=== PATIENT | female | born 1970 | race Caucasian/White ===

== ENCOUNTER → 2017-12-29 12:46 | Outpatient (CLI) | payer BC, SELFPAY | PROVIDERS: PCP Family Medicine; Visit Provider Physician Assistant | DX: G47.30 Sleep apnea, unspecified (principal); G47.10 Hypersomnia, unspecified; R06.83 Snoring; E66.9 Obesity, unspecified | CPT/HCPCS: 95806 ==

== ENCOUNTER → 2018-01-21 10:44 | Outpatient (CLI) | payer BC, SELFPAY | PROVIDERS: PCP Family Medicine; Visit Provider Physician Assistant | DX: G47.33 Obstructive sleep apnea (adult) (pediatric) (principal); I49.9 Cardiac arrhythmia, unspecified; Z82.49 Family history of ischemic heart disease and other diseases of the circulatory system | CPT/HCPCS: 93225 ==

== ENCOUNTER → 2018-01-26 10:47 | Outpatient (CLI) | payer BC, SELFPAY ==
--- NOTE | 2018-01-26 10:52 | CA_ITS ---
PROCEDURE: 2-D M-mode and color Doppler study INDICATIONS FOR THE TEST: Chest pain COPD Heart Murmur Tobacco Smoking Palpitations Fatigue Syncope Edema Hypertension Diabetes Mellitus Rheumatic Fever SOB PETERS ObesityXHyperlipidemia Family History HD Additional History ARRHYTHMIA PATIENT INFORMATION HEIGHT: 67 WEIGHT:232 GENDER: Female B/P:131/63 2-D/M-MODE INTERPRETATION: 2-D MEASUREMENTS OBSERVED VALUES IN CMS Right Ventricular Dimension (RVDd) 3.3 Interventricular Septum (Thickness)(IVsd) 1.0 Left Ventricular Internal Dimensions(LVIDd) 5.2 Left Ventricular Posterior Wall (Thickness)(LVPWd) .8 Aortic Root 3.7 Aortic Cusp Separation 2.2 Left Atrial Dimensions (LAD) 3.2 2D 1. Left atrium is mildly enlarged, left ventricle is normal size, visually estimated ejection fraction of 55% with no regional wall motion abnormality. 2. The right atrium and right ventricle normal contractility. 3. The aortic valve is minimally thickened and fibrosed. 4. The mitral and tricuspid valvular grossly normal. 5. The pulmonic valve is poorly visualized. 6. No significant Pericardial effusion noted. DOPPLER INTERROGATION: Doppler interrogation of the aortic, mitral and tricuspid valvular presence of mild mitral and tricuspid regurgitation, tricuspid regurgitation jet velocity is inadequate for calculation of the right ventricular systolic pressure, grade 1 diastolic dysfunction seen with tissue Doppler evidence of raised left atrial pressure. CONCLUSION: 1. Mildly enlarged left atrium, normal left ventricular size, visually estimated ejection fraction of 55% with no regional wall motion abnormality, grade 1 diastolic dysfunction seen with tissue Doppler evidence of raised left atrial pressure. 2. Mildly enlarged with normal contractility. 3. Mild mitral and tricuspid regurgitation 4.. Pericardial effusion noted.
== END ==
PROVIDERS: PCP Family Medicine; Visit Provider Internal Medicine
DX: I49.9 Cardiac arrhythmia, unspecified (principal); G47.33 Obstructive sleep apnea (adult) (pediatric); Z82.49 Family history of ischemic heart disease and other diseases of the circulatory system
CPT/HCPCS: 93306

== ENCOUNTER → 2018-10-22 12:45 | Outpatient (CLI) | payer BC, SELFPAY ==
--- NOTE | 2018-10-22 13:19 | US_ITS ---
US transvaginal HISTORY: Heavy irregular cycles ITS.REASON: ORDERING PHYSICIAN: KRISTINE Goodwin PATIENT AGE: 48 years Comparison: None FINDINGS: There are multiple nabothian cysts measuring up to 12 mm. The uterus is enlarged at 12 x 6 x 7.5 cm the endometrium is thickened at 13 mm. There is a 3.6 x 2 cm area of heterogeneous echogenicity along the posterior aspect of the body of the uterus consistent with fibroid. The left ovary is 5 x 3.4 cm and contains a 3.4 x 2.7 cm cyst with a septation The right ovary is 3.7 x 2.2 cm. No cul-de-sac fluid evident IMPRESSION: 1. Thickened endometrium at 13 mm 2. Enlarged uterus with 3.6 cm uterine fibroid and multiple nabothian cysts. 3. 3.4 cm left ovarian cyst
== END ==
PROVIDERS: PCP Family Medicine; Visit Provider Physician Assistant
DX: N92.0 Excessive and frequent menstruation with regular cycle (principal)
CPT/HCPCS: 76830

== ENCOUNTER 2019-12-06 19:51 | Emergency (ER) | payer BC, SELFPAY ==
[2019-12-06 20:01] VITALS: BP 153/69; PULSE 113; RESP 18; TEMP 36.7; O2SAT 96; BMI 36.0
--- NOTE | 2019-12-06 20:12 | HMH.EDUTC ---
[facility] [place] Impression: Viral syndrome Sinusitis Qualifiers: Sinusitis location: unspecified location Chronicity: acute Recurrence: non-recurrent Qualified Code(s): J01.90 - Acute sinusitis, unspecified Disposition: Home, Self-Care Condition on Discharge: Good Instructions: Sinusitis, DI for Sinusitis, DI for Viral Syndrome, Preventing the Spread of Coronavirus Discharge Instructions Additional Instructions: Drink plenty of fluids. Take tylenol or ibuprofen for pain or fever. Take the medications as directed. Follow up with your regular doctor. GO TO THE ER FOR ANY WORSENING SYMPTOMS FOLLOW THE DIRECTIONS ON THE COVID-19 HAND OUT THAT WE GAVE YOU REGARDING SELF-ISOLATION UNTIL YOU KNOW YOUR COVID-19 RESULTS Prescriptions: Albuterol Sulfate [Albuterol Sulfate Hfa] 2 puffs IH Q6HP PRN 30 Days #1 hfa.aer.ad PRN Reason: Shortness Of Breath Transmission Status: Received by [facility] # Ondansetron [Zofran 4mg ODT] 4 mg PO Q8HP PRN #10 tab.rapdis PRN Reason: Nausea Transmission Status: Received by [facility] # Azithromycin [Z-Markus 250mg Tab*] 250 mg PO UD DOSE PK #6 tab Transmission Status: Received by [facility] # Referrals: Hermes Arvizu MD [Primary Care Provider] - Forms: Work/School Release Time of Disposition: 20:20 Medical Decision Making - Medical Records Medical records reviewed: No: I reviewed the patient's medical records. - Dave Inquiry Pt receiving controlled substance: No Vital Signs: 12/06/19 20:01 Temperature 98.0 F Temperature Source Oral Pulse Rate [Radial] 113 H Respiratory Rate 18 Blood Pressure [Right Arm] 153/69 H Blood Pressure Mean [Right Arm] 97 Blood Pressure Source [Right Arm] Automatic Cuff Blood Pressure Position [Right Arm] Sitting 02 Sat by Pulse Oximetry 96 Oxygen Delivery Method Room Air Orders (Tests/Meds): ORDERS Category Date Time Status Covid-19 Nasal PCR Sendout [place] Stat [facility] 12/06/19 20:18 [place] [facility] [place] - General Stated complaint: Cough,MACDONALD,Dizzy,chills,wants COVID Test Time Seen by Provider: 09/21/20 20:12 Mode of Arrival: Ambulatory Source of Information: Patient Limitations: No Limitations Description of Symptoms (Recalled from Triage Doc. by RN): feels, weak and tired, wants covid test. HEENT Symptoms (Recalled from RN notes): Yes Resp Symptoms (Recalled from RN notes): No Skin Symptoms (Recalled from RN notes): No MS Symptoms (Recalled from RN notes): Yes Functional Status (Recalled from RN notes): wnl - History of Present Illness Provider Complaint: She c/o body aches, mild chest tightness with deep breathing, chilling and feeling generally ill. Her symptoms started yesterday, but they have increased in severity thru out today. 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 - Related Data Home Medications Medication Instructions Recorded Confirmed citalopram 20 mg tablet 10 mg PO DAILY tab 01/21/18 05/11/18 celecoxib 200 mg capsule 200 mg PO DAILY 30 Days #30 cap 03/06/18 05/11/18 ferrous gluconate 324 mg (38 mg 324 mg PO DAILY 30 Days #30 tab 03/06/18 05/11/18 iron) tablet Previous Rx's Medication Instructions Recorded Albuterol Sulfate [Albuterol 2 puffs IH Q6HP PRN 30 Days #1 12/06/19 Sulfate Hfa] hfa.aer.ad Azithromycin [Z-Markus 250mg Tab*] 250 mg PO UD DOSE PK #6 tab 12/06/19 Ondansetron [Zofran 4mg ODT] 4 mg PO Q8HP PRN #10 tab.rapdis 12/06/19 Allergies Allergy/AdvReac Type Severity Reaction Status Date / Time No Known Allergies Allergy Verified 05/11/18 08:54 - Worker's Comp Is this a Worker's Comp case?: No [facility] History - Hepatitis A Screen Drug use history?: No High risk sexual behaviors?: No History of sexually transmitted infection?: No Currently employed?: No Childcare worker?: No Do you have indoor plumbing?: Yes Do you
[2019-12-06 20:26] VITALS: BP 153/69; PULSE 113; RESP 18; TEMP 36.7; O2SAT 96
[2019-12-08 16:09] LABS: Covid-19 Nasal PCR Sendout Lex Not Detected
== END 2019-12-06 20:26 | disposition home or self-care (01) ==
PROVIDERS: Emergency Provider Nurse Practitioner Family; PCP Family Medicine
DX: B34.9 Viral infection, unspecified (principal); J01.90 Acute sinusitis, unspecified; Z20.828 Contact with and (suspected) exposure to other viral communicable diseases
CPT/HCPCS: 99201; U0004

== ENCOUNTER 2020-03-07 21:05 | Emergency (ER) | payer BC, SELFPAY ==
[2020-03-07 21:14] VITALS: BP 170/71; PULSE 81; RESP 15; TEMP 36.7; O2SAT 96; BMI 36.0
--- NOTE | 2020-03-07 21:36 | HMH.EDUROGF ---
ED Disposition Clinical Impression: Pelvic pain Disposition: Home, Self-Care Condition on Discharge: Good Instructions: DI for Pelvic Pain Additional Instructions: use meds and se pcp in am Referrals: Hermes Arvizu MD [Primary Care Provider] - - Critical Care Critical Care Time: No Attestation: On 03/07/20, the high probability of a clinically significant, sudden or life threatening deterioration of the following system(s) required my full and direct attention, intervention and personal management. The time I documented below is in addition to time spent performing reported procedures but includes the following listed in this critical care notation. Medical Decision Making - Medical Records Medical records reviewed: Yes: I reviewed the patient's medical records. - Dave Inquiry Pt receiving controlled substance: No Vital Signs: 03/07/20 21:14 03/07/20 22:06 03/07/20 22:36 Temperature 98.0 F Temperature Source Oral Pulse Rate [Right Brachial] 81 91 H 82 Respiratory Rate 15 16 15 Blood Pressure [Right Arm] 170/71 H 129/77 145/75 H Blood Pressure Mean [Right Arm] 104 94 98 Blood Pressure Source [Right Arm] Automatic Cuff Automatic Cuff Automatic Cuff Blood Pressure Position [Right Arm] Sitting Sitting Sitting 02 Sat by Pulse Oximetry 96 96 95 Oxygen Delivery Method Room Air Room Air Room Air - Lab Data Lab results reviewed: Yes: I reviewed the patient's lab results. Lab Results 03/07/20 20:45: Urine Color Yellow, Urine Appearance Clear, Urine pH 6.5, Ur Specific [place] 1.020, Urine Protein Negative, Urine Glucose (UA) Negative, Urine Ketones Negative, Urine Blood 1+, Urine Nitrate Negative, Urine Bilirubin Negative, Urine Urobilinogen 0.2, Ur Leukocyte Esterase Negative, Urine RBC 3-5, Urine WBC Occasional, Ur Squamous Epith Cells 3-5, Urine Bacteria 1+, Urine Mucus 1+ 03/07/20 20:50: WBC 10.2, RBC 4.83, Hgb 14.8, Hct 44.3, MCV 91.6, MCH 30.6, MCHC 33.4, RDW 13.9, Plt Count 354, MPV 8.1, Neut % (Auto) 65.0, Lymph % (Auto) 28.6, [place] % (Auto) 4.4, Eos % (Auto) 1.6, Baso % (Auto) 0.4, Neut # (Auto) 6.7, Lymph # (Auto) 2.9, [place] # (Auto) 0.5, Eos # (Auto) 0.2, Baso # (Auto) 0.1 03/07/20 20:50: Sodium 137, Potassium 4.3, Chloride 103, Carbon Dioxide 26, Anion Gap 12.3, BUN 19 H, Creatinine 0.70, Estimated Creat Clear 158, Estimated GFR 89, Est GFR ( Amer) 107, Glucose 105 H, Calcium 9.5, Total Bilirubin 0.4, AST 53 H, ALT 68, Alkaline Phosphatase 54, C-Reactive Protein 5.5 H, Total Protein 7.8, Albumin 4.4, Globulin 3.4 H, Albumin/Globulin Ratio 1.3, Amylase 64 03/07/20 20:50: ESR 16 03/07/20 20:50: Lipase 141 Result diagrams: 03/07/20 20:50 03/07/20 20:50 Orders (Tests/Meds): ED MEDICATIONS Discontinued Medications Generic Name Dose Route Start Last Admin Trade Name Freq PRN Reason Stop Dose Admin Acetaminophen/Codeine Phosphate 1 cydney 03/07/20 23:35 Acetaminophen 300mg W/Codeine 30mg Take Home Pack (6) PO 03/07/20 23:36 ONCE ONE Ketorolac Tromethamine 30 mg 03/07/20 22:52 03/07/20 23:05 Ketorolac 30mg/Ml Vial IV 03/07/20 22:53 30 mg ONCE ONE Administration Levofloxacin 500 mg 03/07/20 23:35 Levofloxacin 500mg Tab PO 03/07/20 23:36 ONCE ONE Protocol ORDERS Category Date Time Status CT abdomen pelvis wo con Stat Cat Scan 03/07/20 21:38 Taken C-Reactive Protein Stat Lab 03/07/20 23:35 Ordered Erythrocyte Sedimentation Rate Stat Lab 03/07/20 23:35 Ordered US Pelvic Stat Ultrasound 03/07/20 22:43 Ordered - CT Data CT Scan: Abdomen, Pelvis Time Received: 23:[address] Reviewed: Yes: I have viewed the radiologist's interpretation Preliminary Findings: Normal/NAD - US Data US Images: Pelvis ED US Reviewed: Yes: I discussed the US results w/the radiologist Preliminary Findings: Normal/NAD Medical Decision Narrative: uncertain etiology as u/s and ct - ok - maybe urethritis Female Urogenital HPI - General Chief complai
--- NOTE | 2020-03-07 21:38 | CT_ITS ---
PROCEDURE: CT ABDOMEN PELVIS WO CON CLINICAL INDICATION: pelvic pressure Misplaced IUD COMPARISON: CT ABDPELW/O CT ABD PELVIS W/O CONTRAST from 03/27/2015 US US TRANSVAGINAL from 03/07/2020 TECHNIQUE: Axial images obtained with sagittal and coronal reformats. All CT scans at the facility use one or more dose reduction, viz: automated exposure control, ma/kV adjustment per patient size (including targeted exams where dose is matched to indication, i.e. head), or iterative reconstruction technique. FINDINGS: There is diffuse fatty liver. The spleen, adrenal glands, pancreas, has an unremarkable appearance. There are nonobstructing bilateral punctate renal calculi. There is a small umbilical hernia containing fat. No evidence of appendicitis. There is an IUD in place which appears to be in satisfactory position. The uterus is anteverted and mildly bulky. No pelvic mass or abnormal fluid collection. No acute bony findings. Degenerative disc disease is present at L5-S1 with endplate hypertrophic change and bilateral foraminal narrowing. IMPRESSION: 1. Nonobstructing bilateral renal calculi. 2. IUD in place within satisfactory position within a bulky uterus. Dictated by: aAron Moses MD 03/08/2020 07:13 Aaron Moses MD in OV 03/08/2020 07:13
--- NOTE | 2020-03-07 21:41 | PC.NURSE ---
MD at pt bedside with this nurse for a pelvic exam.
[2020-03-07 22:01] LABS: Microscopic, Urine URINE MICROSCOPIC (MICROSCOPIC)
[2020-03-07 22:05] LABS: Basophils # 0.1 K/mm3 (0-0.2); Basophils % 0.4 % (0.1-2.0); Eosinophils # 0.2 K/mm3 (0.0-0.4); Eosinophils % 1.6 % (0.1-12.0); Hematocrit 44.3 % (37.0-47.0); Hemoglobin 14.8 g/dL (12.2-16.2); Lymphocytes # 2.9 K/mm3 (0.7-4.5); Lymphocytes % 28.6 % (10-50); Mean Corpuscular HGB Conc 33.4 g/dL (31.8-35.4); Mean Corpuscular Hemoglobin 30.6 pg (27.0-31.2); Mean Corpuscular Volume 91.6 fl (81-99); Mean Platelet Volume 8.1 fl (7.4-10.4); Monocytes # 0.5 K/mm3 (0.1-1.0); Monocytes % 4.4 % (1.7-9.3); Neutrophils # 6.7 K/mm3 (1.8-7.8); Platelet Count 354 K/mm3 (142-424); Red Blood Count 4.83 M/mm3 (4.20-5.40); Red Cell Distribution Width 13.9 % (11.5-17.5); White Blood Count 10.2 K/mm3 (4.8-10.8)
[2020-03-07 22:05] LABS: Appearance,Urine CLEAR (Clear); Bilirubin,Urine Negative (Negative); Blood, Urine 1+ (Negative); Color,Urine YELLOW (Yellow); Glucose,Urine (UA) Negative (Negative); Ketones,Urine Negative (Negative); Leukocyte Esterase,Urine Negative (Negative); Nitrate,Urine Negative (Negative); PH,Urine 6.5 (5.0-8.5); Protein,Urine Negative (Negative); Urobilinogen,Urine 0.2 EU/dl (0.2)
[2020-03-07 22:06] VITALS: BP 129/77; PULSE 91; RESP 16; O2SAT 96
[2020-03-07 22:15] LABS: Bacteria,Urine 1+ /lpf; Mucus,Urine 1+ /lpf; WBC,Urine Occasional #/hpf (0-3)
[2020-03-07 22:17] LABS: Chloride 103 mmol/L (98-107); Potassium 4.3 mmoL/L (3.5-5.1); Sodium 137 mmol/L (136-145)
[2020-03-07 22:19] LABS: Amylase 64 U/L (30-110); Blood Urea Nitrogen 19 mg/dl (7-17); Creatinine Clearance Estimated 158 mL/min (50-200); Estimated Glomerular Filt Rate 89 ml/min (>60); GFR (African American) 107 ML/MIN (>60); Lipase 141 U/L (23-300)
[2020-03-07 22:20] LABS: Alanine Aminotransferase 68 U/L (12-78); Albumin Level 4.4 g/dl (3.5-5.0); Albumin/Globulin Ratio 1.3 (1.1-1.8); Alkaline Phosphatase 54 U/L (38-126); Anion Gap 12.3 mEq/L (5-15); Aspartate Amino Transferase 53 U/L (14-36); Bilirubin,Total 0.4 mg/dl (0.2-1.3); Calcium 9.5 mg/dl (8.4-10.2); Carbon Dioxide 26 mmol/L (22.0-30.0); Globulin 3.4 g/dL (1.3-3.2); Glucose 105 mg/dl (74-100); Total Protein,Serum 7.8 g/dl (6.3-8.2)
[2020-03-07 22:26] LABS: C-Reactive Protein 5.5 mg/L (0-4)
[2020-03-07 22:33] LABS: Erythrocyte Sedimentation Rate 16 mm/hr (0-20)
[2020-03-07 22:36] VITALS: BP 145/75; PULSE 82; RESP 15; O2SAT 95
--- NOTE | 2020-03-07 22:43 | US_ITS ---
PROCEDURE: US TRANSVAGINAL CLINICAL INDICATION: pelvic pain Pelvic pain and pressure, heavy periods COMPARISON: US TRANVAG US transvaginal from 10/22/2018 FINDINGS: The uterus is 11 x 5 x 7 cm. Combined endometrial thickness is 8 mm. There are multiple nabothian cyst. A fundal fibroid is present at 2 cm. An additional fibroid noted in the posterior aspect of the body of the uterus 4 x 2 cm. There is an IUD in place. The ovaries are not well demonstrated. No obvious adnexal mass. There bilateral ovarian blood flow noted. No cul-de-sac fluid. IMPRESSION: Bulky uterus with fibroid involvement and IUD in place Dictated by: Aaron Moses MD 03/08/2020 07:16 Aaron Moses MD in OV 03/08/2020 07:16
--- NOTE | 2020-03-07 22:59 | PC.NURSE ---
Pt to ultrasound
--- NOTE | 2020-03-07 23:28 | PC.NURSE ---
pt back from US
--- NOTE | 2020-03-07 23:31 | PC.NURSE ---
2330 pt returned from Radiology
--- NOTE | 2020-03-07 23:32 | PC.NURSE ---
Physician at bedside.
--- NOTE | 2020-03-07 23:32 | PC.NURSE ---
us of vagina is complete. verbal report to dr mckinney from [facility].
[2020-03-07 23:53] VITALS: BP 142/30; PULSE 83; RESP 16; TEMP 36.8; O2SAT 98
[2020-03-07 23:55] LABS: C-Reactive Protein 5.1 mg/L (0-4)
[2020-03-08 00:07] LABS: Erythrocyte Sedimentation Rate 18 mm/hr (0-20)
== END 2020-03-08 00:02 | disposition home or self-care (01) ==
PROVIDERS: Emergency Provider Emergency Medicine; PCP Family Medicine
DX: R10.2 Pelvic and perineal pain (principal)
CPT/HCPCS: 74176; 76830; 80053; 81001; 82150; 83690; 85025; 85651; 86140; 96374; 99283

== ENCOUNTER → 2020-04-08 12:32 | Outpatient (CLI) | payer BC, SELFPAY | PROVIDERS: Visit Provider Family Medicine | DX: N30.00 Acute cystitis without hematuria (principal) | CPT/HCPCS: 87086; 87088; 87186 ==

== ENCOUNTER 2020-12-02 10:39 | Emergency (ER) | payer BC, SELFPAY ==
[2020-12-02 10:51] VITALS: BP 185/96; PULSE 96; RESP 16; TEMP 36.5; O2SAT 96; BMI 36.0
--- NOTE | 2020-12-02 11:28 | HMH.EDUTC ---
[facility] [place]ression: Exposure to COVID-19 virus Disposition: Home, Self-Care Condition on Discharge: Good Instructions: DI for COVID-19 (Suspected or Confirmed ), Preventing the Spread of Coronavirus Discharge Instructions Additional Instructions: Drink plenty of fluids. Take tylenol for pain or fever. Return if you begin to have difficulty breathing. Follow up with your regular doctor. GO TO THE ER FOR ANY WORSENING SYMPTOMS Quarantine until you know the results of your covid-19 test. If it is positive, the health department should call you and give you further instructions about your length of Quarantine and other things. Notify your school or workplace of your results and follow their instructions regarding return to work/school. Referrals: Hermes Arvizu MD [Primary Care Provider] - Time of Disposition: 11:33 Medical Decision Making - Medical Records Medical records reviewed: No: I reviewed the patient's medical records. - Dave Inquiry Pt receiving controlled substance: No Vital Signs: 12/02/20 10:51 12/02/20 11:43 Temperature 97.7 F 97.7 F Temperature Source Tympanic Tympanic Pulse Rate 96 H Pulse Rate [Apical] 96 H Respiratory Rate 16 18 Blood Pressure 185/96 H Blood Pressure [Right Arm] 185/96 H Blood Pressure Mean [Right Arm] 125 Blood Pressure Source Automatic Cuff Blood Pressure Source [Right Arm] Automatic Cuff Blood Pressure Position Sitting Blood Pressure Position [Right Arm] Supine 02 Sat by Pulse Oximetry 96 Oxygen Delivery Method Room Air Room Air [facility] [place] - General Stated complaint: covid test Time Seen by Provider: 12/02/20 11:32 Mode of Arrival: Ambulatory Source of Information: Patient Limitations: No Limitations Description of Symptoms (Recalled from Triage Doc. by RN): covid exposure HEENT Symptoms (Recalled from RN notes): No Resp Symptoms (Recalled from RN notes): No Skin Symptoms (Recalled from RN notes): No MS Symptoms (Recalled from RN notes): No Functional Status (Recalled from RN notes): na - History of Present Illness Provider Complaint: She was exposed to covid at her job around 5 days ago. She denies any symptoms, but she needs a negative test to return to work. - Related Data Home Medications Medication Instructions Recorded Confirmed citalopram 20 mg tablet 10 mg PO DAILY tab 11/07/18 02/25/19 celecoxib 200 mg capsule 200 mg PO DAILY 30 Days #30 cap 03/06/18 05/11/18 ferrous gluconate 324 mg (38 mg 324 mg PO DAILY 30 Days #30 tab 03/06/18 05/11/18 iron) tablet Previous Rx's Medication Instructions Recorded Albuterol Sulfate [Albuterol 2 puffs IH Q6HP PRN 30 Days #1 12/06/19 Sulfate Hfa] hfa.aer.ad Azithromycin [Z-Markus 250mg Tab*] 250 mg PO UD DOSE PK #6 tab 12/06/19 Ondansetron [Zofran 4mg ODT] 4 mg PO Q8HP PRN #10 tab.rapdis 12/06/19 Allergies Allergy/AdvReac Type Severity Reaction Status Date / Time No Known Allergies Allergy Verified 05/11/18 08:54 - Worker's Comp Is this a Worker's Comp case?: No [facility] History - Hepatitis A Screen Drug use history?: No High risk sexual behaviors?: No History of sexually transmitted infection?: No Currently employed?: No Childcare worker?: No Do you have indoor plumbing?: Yes Do you have electricity?: Yes Attestation statement:: This patient has been screened for Hepatitis A risk factors. I have reviewed the patient's past medical history: Yes Other Medical History: Reports: Arthritis Comment: RAMA Other Surgeries: Yes: Other Comment: breast biopsy, spine fusion - Social History Smoking Status: Never smoker Alcohol Intake: never Alcohol Intake Frequency:: holidays/special occasions only Substance Use Type: denies use Occupational Status: employed Housing: house Household Members: spouse Family Hx:: Coronary Artery Disease Comment: Father-CAD, CABG at 70's. Paternal Grandmother-CAD ROS Obtained: Yes All systems reviewed & no
[2020-12-02 11:43] VITALS: BP 185/96; PULSE 96; RESP 18; TEMP 36.5; O2SAT 96
== END 2020-12-02 11:44 | disposition home or self-care (01) ==
PROVIDERS: Emergency Provider Nurse Practitioner Family; PCP Family Medicine
DX: Z20.822 Contact with and (suspected) exposure to COVID-19 (principal)
CPT/HCPCS: 99202; C9803; G0463; U0003; U0005

== ENCOUNTER → 2021-03-28 14:10 | Outpatient (CLI) | payer BC, SELFPAY | PROVIDERS: Visit Provider Nurse Practitioner | DX: Z20.822 Contact with and (suspected) exposure to COVID-19 (principal) | CPT/HCPCS: C9803; U0003; U0005 ==

== ENCOUNTER → 2023-02-18 08:00 | Outpatient (CLI) | payer BC, SELFPAY ==
--- NOTE | 2023-02-18 08:08 | US_ITS ---
FINAL REPORT CLINICAL HISTORY: ELEVATED LFT COMPARISON: None FINDINGS: Sonographic images of the right upper quadrant were obtained. The pancreas is partially obscured.The liver has an unremarkable appearance.The gallbladder appears normal without evidence of gallstones.There is no evidence of biliary ductal dilatation.The common duct measures 2.4 mm. Limited images of the right kidney are unremarkable. IMPRESSION: Unremarkable right upper quadrant ultrasound. Reviewed, Interpreted and Dictated by Kendell Diamond III, MD Transcribed by Yolie Villarreal Authenticated and [facility]
== END ==
LOC: RAD 08:03
PROVIDERS: PCP Family Medicine; Visit Provider Physician Assistant
DX: R79.89 Other specified abnormal findings of blood chemistry (principal); J32.9 Chronic sinusitis, unspecified
CPT/HCPCS: 76705

== ENCOUNTER → 2023-02-27 07:37 | Outpatient (CLI) | payer BC, SELFPAY ==
--- NOTE | 2023-02-27 07:41 | CT_ITS ---
FINAL REPORT CLINICAL HISTORY: CHRONIC CONGESTION OF PARANASEL SINUS COMPARISON: None FINDINGS: The paranasal sinuses are well aerated. The mastoid air cells are well aerated. Ostiomeatal complexes are adequately patent. There is no fracture. There are no air-fluid levels. IMPRESSION: Unremarkable. Reviewed, Interpreted and Dictated by Edmar Knight MD Transcribed by Abbey Maxwell Authenticated and [facility]
== END ==
PROVIDERS: PCP Family Medicine; Visit Provider Physician Assistant
DX: J32.9 Chronic sinusitis, unspecified (principal)
CPT/HCPCS: 70486

== ENCOUNTER 2023-04-14 02:05 | Emergency (ER) | payer BC, SELFPAY ==
[2023-04-14 02:06] VITALS: BP 167/98; PULSE 119; RESP 22; TEMP 37.8; O2SAT 96; BMI 40.7
--- NOTE | 2023-04-14 02:11 | HMH.EDGENADL ---
Discharge Plan Disposition Patient Disposition: Home, Self-Care Prescriptions Prescriptions: New ondansetron HCl 4 mg tablet 4 mg PO Q8H PRN (Reason: nausea and vomiting) 5 Days Qty: 30 0RF No Action citalopram [Celexa] 20 mg tablet 10 mg PO DAILY ferrous gluconate 324 mg (38 mg iron) tablet 324 mg PO DAILY 30 Days Qty: 30 celecoxib 200 mg capsule See Rx Instructions .ROUTE .COMPLEX Qty: 90 3RF Dose Instruction: TAKE 1 CAPSULE BY MOUTH ONCE DAILY Rx Instructions: TAKE 1 CAPSULE BY MOUTH ONCE DAILY azithromycin 250 MG tablet 250 mg PO UD DOSE PK Qty: 6 0RF Rx Instructions: Take two (2) tablets today, then one (1) tablet days #2 thru #5 ondansetron 4 MG tablet,disintegrating 4 mg PO Q8HP PRN (Reason: Nausea) Qty: 10 0RF albuterol sulfate 8.5 GM HFA aerosol inhaler 2 puffs IH Q6HP PRN (Reason: Shortness Of Breath) 30 Days Qty: 1 5RF Referrals Follow up/Referrals: Gordon Yeboah MD [Primary Care Provider] - See instructions Activity Restrictions/Add. Instructions Additional Instructions/Restrictions: Please take Zofran as needed for nausea and vomiting. Please remain hydrated. Please follow-up with your primary care provider. Please return to the emergency department if you develop any new or worsening symptoms or become concerned for your health. Clinical Impressions Clinical Impression: Enteritis, Nausea & vomiting Instructions Patient Instructions: DI for Diarrhea and Traveler's Diarrhea -- Adult, DI for Diarrhea and Traveler's Diarrhea -- Child, DI for Nausea -- Adult, DI for Nausea -- Child Discharge ED Provider: Osman Seth General Adult HPI General Chief complaint: Nausea/Vomiting/Diarrhea Stated complaint: Vomiting Time Seen by Provider: 04/14/23 02:11 History of Present Illness HPI narrative: 52-year-old female with no significant reported past medical history presents with nausea vomiting and malaise. She reports that she felt off yesterday. Today her symptoms have worsened. For the last 4 hours she has been vomiting constantly. She also reports that she has had low back pain for the last day or so. She reports that she has had frequent UTIs in the past, denies any history of kidney stones. She denies significant abdominal pain, just generalized pain with vomiting. Denies any history of abdominal surgery. Denies shortness of breath or chest pain. Related Data Home Medications Medication Instructions Recorded Confirmed citalopram 20 mg tablet (Celexa) 10 mg PO DAILY 01/21/18 05/11/18 ferrous gluconate 324 mg (38 mg 324 mg PO DAILY 30 days #30 tabs 03/06/18 05/11/18 iron) tablet Previous Rx's Medication Instructions Recorded albuterol sulfate 90 mcg/actuation 2 puffs IH Q6HP PRN Shortness Of 12/06/19 aerosol inhaler Breath 30 days ##1 azithromycin 250 mg tablet 250 mg PO UD DOSE PK #6 tabs 12/06/19 ondansetron 4 mg disintegrating 4 mg PO Q8HP PRN Nausea ##10 12/06/19 tablet celecoxib 200 mg capsule See Rx Instructions .Route 08/30/22 .COMPLEX #90 caps ondansetron HCl 4 mg tablet 4 mg PO Q8H PRN nausea and 04/14/23 vomiting 5 days #30 tabs Allergies Allergy/AdvReac Type Severity Reaction Status Date / Time promethazine [From Phenergan] Allergy Unknown Verified 04/14/23 02:17 [facility] Disclaimer: The information contained in this section may have been updated after the patient was seen, as this information can be updated by other users. Social History Smoking Status: Never smoker alcohol intake: never substance use type: denies use current occupational status: employed Travel in the last 8 weeks: None household members: spouse housing: house current occupational exposures/hazards: No caffeine: Yes ROS Obtained: Yes All systems reviewed & no additional complaints except as documented Physical Exam General General appearance: alert Comment: Uncomfortable appearing Head Head exam: atraumatic and normocephalic Eye Eye exam: Present normal appearance, PERRL and EOMI ENT ENT exam: Present normal oropharynx, mucous membranes moist and normal external ear exam Neck Neck exam: Present normal inspection and full ROM Chest Chest inspection: Present normal inspection and symmetric chest wall rise; Absent tenderness Respiratory Respiratory exam: Present normal lung sounds bilaterally; Absent respiratory distress Cardiovascular Cardiovascular exam: Present normal rhythm and tachycardia Abdominal Exam Abdominal exam: Present soft and tenderness (Mild, generalized); Absent distention or guarding Extremities Exam Extremities exam: Present normal inspection; Absent edema or joint swelling Back Exam Back exam: Present normal inspection and tenderness (Bilateral low back) Neurological Exam Neurological exam: Present alert and oriented X3; Absent motor sensory deficit Psychiatric Psychiatric exam: Present normal affect and normal mood Skin Skin exam: Present warm, dry and normal color Lymphatic Lymphatic Findings: no adenopathy Medical Decision Making Medical Records Medical records reviewed: Yes I reviewed the patient's medical records. Dave Inquiry Pt receiving controlled substance: No Dave was queried for this patient: No Vital Signs: 04/14/23 02:06 Temperature 100.0 F H Temperature Source Oral Pulse Rate [Left Radial] 119 H Respiratory Rate 22 Blood Pressure [Right Arm] 167/98 H Blood Pressure Mean [Right Arm] 121 Blood Pressure Source [Right Arm] Automatic Cuff Blood Pressure Position [Right Arm] Sitting 02 Sat by Pulse Oximetry 96 Oxygen Delivery Method Room Air Lab Data Lab results reviewed: Yes I reviewed the patient's lab results. Lab Results 04/14/23 02:25: SARS-CoV-2 (PCR) Not detected, Influenza A Untype (PCR) Not detected, Influenza Type B (PCR) Not detected 04/14/23 02:28: WBC 12.2 H, RBC 4.86, Hgb 15.1, Hct 43.2, MCV 89.0, MCH 31.1, MCHC 35.0, RDW 13.5, Plt Count 217, MPV 8.3, Neut % (Auto) 90.5 H, Lymph % (Auto) 5.4 L, Jefferson % (Auto) 2.6, Eos % (Auto) 1.4, Baso % (Auto) 0.1, Neut # (Auto) 11.0 H, Lymph # (Auto) 0.7, Jefferson # (Auto) 0.3, Eos # (Auto) 0.2, Baso # (Auto) 0.0, Total Counted 100, Neutrophils % (Manual) 96 H, Lymphocytes % (Manual) 4 L, Platelet Estimate Normal, RBC Morphology Normal, Sodium 137, Potassium 4.0, Chloride 103, Carbon Dioxide 24, Anion Gap 14.0, BUN 15, Creatinine 0.70, Estimated Creat Clear 173, Estimated GFR 88, Est GFR ( Amer) 106, Glucose 166 H, Calcium 9.4, Magnesium 1.6, Total Bilirubin 0.7, AST 66 H, ALT 93 H, Alkaline Phosphatase 82, Total Protein 7.8, Albumin 4.3, Globulin 3.5 H, Albumin/Globulin Ratio 1.2, Lipase 95 04/14/23 03:10: Urine Color Yellow, Urine Appearance Clear, Urine pH 6.5, Ur Specific Ackworth 1.020, Urine Protein Trace, Urine Glucose (UA) Negative, Urine Ketones Trace, Urine Blood Negative, Urine Nitrate Negative, Urine Bilirubin Negative, Urine Urobilinogen 0.2, Ur Leukocyte Esterase Negative, Urine RBC Occasional, Urine WBC 5-10, Ur Squamous Epith Cells 20-50, Urine Bacteria 2+ 04/14/23 02:28 04/14/23 02:28 Orders (Tests/Meds): ED MEDICATIONS Discontinued Medications Generic Name Dose Route Start Last Admin Trade Name Freq PRN Reason Stop Dose Admin Lactated Ringer's 1,000 mls @ 999 mls/hr 04/14/23 02:15 04/14/23 02:24 Lactated Ringer's 1000 Ml Bag IV 04/14/23 03:15 999 mls/hr .Q1H1M ALLISON Administration Iopamidol 75 ml 04/14/23 03:09 04/14/23 03:10 Iopamidol-370 (76%);100ml Bottle IV 04/14/23 03:10 75 ml ONCE ONE Administration Ketorolac Tromethamine 30 mg 04/14/23 02:15 04/14/23 02:25 Ketorolac 30mg/Ml Vial IV 04/14/23 02:16 30 mg ONCE ONE Administration Metoclopramide HCl 10 mg 04/14/23 02:16 04/14/23 02:25 Metoclopramide Hcl 10mg/2ml Vial IVP 04/14/23 02:17 10 mg ONCE ONE Administration Ondansetron HCl 4 mg 04/14/23 02:15 04/14/23 02:25 Ondansetron 4mg/2ml Vial IV 04/14/23 02:16 4 mg ONCE ONE Administration Sodium Chloride 10 ml 04/14/23 03:09 04/14/23 03:10 Sodium Chloride 0.9% 10ml Syr (Rad Only) IV 04/14/23 03:10 10 ml ONCE ONE Administration ORDERS Category Date Time Status CT abdomen pelvis w con Stat Cat Scan 04/14/23 02:49 Completed CBC w/Auto Diff [Complete Blood Count Auto Diff] Stat Lab 04/14/23 02:28 Completed CMP [Comprehensive Metabolic Panel] Stat Lab 04/14/23 02:28 Completed Lipase Stat Lab 04/14/23 02:28 Completed Magnesium Stat Lab 04/14/23 02:28 Completed Rapid PCR Covid and Flu A/B Stat Lab 04/14/23 02:25 Completed UA [Urinalysis and Microscopic] Stat Lab 04/14/23 03:10 Completed Urine Culture Stat Micro 04/14/23 03:10 Received Medical Decision Narrative: 52-year-old female without significant past medical history presents with nausea vomiting abdominal pain back pain. History was obtained via conversation with patient. On arrival, patient is temperature 100.0, tachycardic to 120, actively vomiting, uncomfortable appearing, moving all extremities spontaneously. Full physical exam performed and significant for mild generalized abdominal tenderness and low back tenderness Differential includes but is not limited to UTI, pyelonephritis, gastroenteritis, cholecystitis, appendicitis, bowel obstruction, flu. Patient flagged positive for sepsis, but I did not administer a full sepsis bolus as I do not feel this was indicated given hx and exam and vitals. Patient was given 1 L IV fluid bolus, IV Zofran, IV Reglan, p.o. Tylenol for symptomatic management and correction of underlying abnormalities. Workup initiated including CBC CMP lipase UA CT abdomen pelvis with IV contrast. On re-evaluation, patient [remains afebrile, HD stable.] Reports symptomatic improvement, no longer vomiting. Laboratory workup independently interpreted by me and significant for mildly elevated AST and ALT, mild leukocytosis of 12, lipase normal. Urine does not appear consistent with infection.. Imaging independently interpreted by me and significant for fluid-filled loops of small bowel consistent with enteritis, no cholecystitis, pancreatitis, obstruction. See radiology read for full review of final results. Admission for IV fluids was considered, but deemed necessary. Patient is tolerating p.o. and symptomatically improved. Given patient history, exam and workup, patient's presentation most likely represents developing gastroenteritis. These findings were communicated to patient. She was discharged in stable condition with prescription for Zofran. Return precautions given. Procedures Risk/Benefits of Procedure(s) Were Explained: Yes Critical Care Critical Care Time Critical Care Time: No
[2023-04-14] MEDS: LACTATED RINGERS 1000ML 1,000 ML 999 ML IV (02:24)
[2023-04-14] MEDS: ONDANSETRON 4MG/2ML VIAL 4 MG IV (02:25)
[2023-04-14] MEDS: KETOROLAC 30MG/ML VIAL 30 MG IV (02:25)
[2023-04-14] MEDS: METOCLOPRAMIDE HCL 10MG/2ML VIAL 10 MG IVP (02:25)
[2023-04-14 02:26] LABS: Coronavirus 19, PCR Not Detected (NotDetected); Influenza A, PCR Not Detected (NotDetected); Influenza B, PCR Not Detected (NotDetected)
[2023-04-14 02:38] LABS: Basophils % 0.1 % (0.1-2.0); Eosinophils # 0.2 K/mm3 (0.0-0.4); Eosinophils % 1.4 % (0.1-12.0); Hematocrit 43.2 % (37.0-47.0); Hemoglobin 15.1 g/dL (12.2-16.2); Lymphocytes # 0.7 K/mm3 (0.7-4.5); Lymphocytes % 5.4 % (10-50); MANUAL DIFFERENTIAL MANUAL DIFFERENTIAL (MANUAL DIFF); Mean Corpuscular Hemoglobin 31.1 pg (27.0-31.2); Mean Platelet Volume 8.3 fl (7.4-10.4); Monocytes # 0.3 K/mm3 (0.1-1.0); Monocytes % 2.6 % (1.7-9.3); Neutrophils % 90.5 % (37.0-80.0); Platelet Count 217 K/mm3 (142-424); Red Blood Count 4.86 M/mm3 (4.20-5.40); Red Cell Distribution Width 13.5 % (11.5-17.5); White Blood Count 12.2 K/mm3 (4.8-10.8)
[2023-04-14 02:40] LABS: Chloride 103 mmol/L (98-107); Sodium 137 mmol/L (136-145)
[2023-04-14 02:42] LABS: Blood Urea Nitrogen 15 mg/dl (7-17); Creatinine Clearance Estimated 173 mL/min (50-200); Estimated Glomerular Filt Rate 88 ml/min (>60); GFR (African American) 106 ML/MIN (>60)
[2023-04-14 02:43] LABS: Alanine Aminotransferase 93 U/L (12-78); Albumin Level 4.3 g/dl (3.5-5.0); Albumin/Globulin Ratio 1.2 (1.1-1.8); Alkaline Phosphatase 82 U/L (38-126); Aspartate Amino Transferase 66 U/L (14-36); Bilirubin,Total 0.7 mg/dl (0.2-1.3); Calcium 9.4 mg/dl (8.4-10.2); Carbon Dioxide 24 mmol/L (22.0-30.0); Globulin 3.5 g/dL (1.3-3.2); Glucose 166 mg/dl (74-100); Lipase 95 U/L (23-300); Magnesium 1.6 mg/dl (1.6-2.3); Total Protein,Serum 7.8 g/dl (6.3-8.2)
--- NOTE | 2023-04-14 02:49 | CT_ITS ---
PROCEDURE INFORMATION: Exam: CT Abdomen And Pelvis With Contrast Exam date and time: 04/14/2023 3:03 AM Age: 52 years old Clinical indication: Fever and nausea and vomiting; Abdominal pain; Additional info: Abd pain, vomiting, fever TECHNIQUE: Imaging protocol: Computed tomography of the abdomen and pelvis with contrast. Radiation optimization: All CT scans at this facility use at least one of these dose optimization techniques: automated exposure control; mA and/or kV adjustment per patient size (includes targeted exams where dose is matched to clinical indication); or iterative reconstruction. Contrast material: ISOVUE; Contrast volume: 75 ml; Contrast route: IV; COMPARISON: CT ABDOMEN PELVIS WO CON 03/07/2020 9:53 PM FINDINGS: Lungs: A 4 mm calcified pleural-based granuloma is noted along the right lower lobe convexity near the major fissure. A 5 mm calcified granuloma is noted in the left lower lobe. Liver: The liver is diffusely low in density compatible with fatty infiltration with areas of focal sparing. Gallbladder and bile ducts: The gallbladder is partially distended. Pancreas: Normal. No ductal dilation. Spleen: Calcified granulomas are noted within the spleen. Adrenal glands: Normal. No mass. Kidneys and ureters: The kidneys enhance symmetrically and there is no hydronephrosis Stomach and bowel: There is no evidence for small bowel obstruction. Stool scattered throughout the colon. Appendix: The appendix is not clearly resolved. Intraperitoneal space: Unremarkable. No free air. No significant fluid collection. Vasculature: Unremarkable. No abdominal aortic aneurysm. Lymph nodes: Unremarkable. No enlarged lymph nodes. Urinary bladder: The urinary bladder is contracted. Reproductive: Unremarkable as visualized. Bones/joints: Degenerative changes are noted in the bones. Soft tissues: Unremarkable. IMPRESSION: Fatty liver with areas of focal sparing. 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
[2023-04-14 02:54] LABS: Lymphocytes % 4 % (10-50); Neutrophils % 96 % (42-76); Total Cells Counted 100
[2023-04-14 02:55] LABS: Platelet Estimate Normal; RBC Morphology Normal
[2023-04-14] MEDS: SODIUM CHLORIDE 0.9% 10ML SYR (RAD ONLY) 10 ML IV (03:10)
[2023-04-14] MEDS: IOPAMIDOL-370 (76%);100ML BOTTLE 75 ML IV (03:10)
[2023-04-14 03:25] LABS: Microscopic, Urine URINE MICROSCOPIC (MICROSCOPIC)
[2023-04-14 03:26] LABS: Appearance,Urine CLEAR (Clear); Bilirubin,Urine Negative (Negative); Blood, Urine Negative (Negative); Color,Urine YELLOW (Yellow); Glucose,Urine (UA) Negative (Negative); Ketones,Urine TRACE (Negative); Leukocyte Esterase,Urine Negative (Negative); Nitrate,Urine Negative (Negative); PH,Urine 6.5 (5.0-8.5); Protein,Urine TRACE (Negative); Urobilinogen,Urine 0.2 EU/dl (0.2)
[2023-04-14 03:38] LABS: Bacteria,Urine 2+ /lpf; RBC,Urine Occasional #/hpf (0-3); Squamous Epithelial Cell,Urine 20-50 #/hpf (0-5)
[2023-04-14 04:05] VITALS: BP 158/77; PULSE 107; RESP 18; TEMP 37.4; O2SAT 98
== END 2023-04-14 04:07 | disposition home or self-care (01) ==
PROVIDERS: Emergency Provider Emergency Medicine; PCP Family Medicine
DX: K52.9 Noninfective gastroenteritis and colitis, unspecified (principal); R11.2 Nausea with vomiting, unspecified; R53.81 Other malaise; M54.50 Low back pain, unspecified; R00.0 Tachycardia, unspecified
CPT/HCPCS: 74177; 80053; 81001; 83690; 83735; 85007; 85025; 87086; 87636; 96361; 96374; 96375; 99285; J2405; Q9967

== ENCOUNTER 2024-03-24 16:58 | Outpatient (CLI) | payer BC, SELFPAY ==
--- NOTE | 2024-03-24 | XR_ITS ---
PROCEDURE INFORMATION: Exam: XR Right Foot Complete; Alignment Exam date and time: 03/24/2024 5:08 PM Age: 53 years old Clinical indication: Pain; Foot; Right; Additional info: Tendinitis TECHNIQUE: Imaging protocol: Radiologic exam of the right foot. Views: 3 or more views. COMPARISON: CR XR ANKLE WT BEARING RT MIN 3V 03/24/2024 5:08 PM FINDINGS: Bones/joints: Mild degenerative changes of the 1st MTP joint. Moderate size Achilles tendon insertion heel spur and minimal plantar fascial insertion heel spur. Soft tissues: See Bones/joints finding. IMPRESSION: No acute abnormality.
--- NOTE | 2024-03-24 | XR_ITS ---
PROCEDURE INFORMATION: Exam: XR Right Ankle Exam date and time: 03/24/2024 5:08 PM Age: 53 years old Clinical indication: Pain; Ankle; Right; Additional info: Tendinitis TECHNIQUE: Imaging protocol: Radiologic exam of the right ankle. Views: 3 or more views. COMPARISON: CR XR ANKLE WT BEARING RT MIN 3V 03/24/2024 5:08 PM FINDINGS: Bones/joints: Moderate size Achilles tendon insertion heel spur. No other significant bone or joint abnormality. Soft tissues: Normal. IMPRESSION: No acute abnormality.
--- NOTE | 2024-03-24 | XR_ITS ---
PROCEDURE INFORMATION: Exam: XR Left Foot Complete; Alignment Exam date and time: 03/24/2024 5:08 PM Age: 53 years old Clinical indication: Pain; Foot; Left; Additional info: Tendinintis TECHNIQUE: Imaging protocol: Radiologic exam of the left foot. Views: 3 or more views. COMPARISON: CR XR ANKLE WT BEARING LT MIN 3V 03/24/2024 5:08 PM FINDINGS: Bones/joints: Heel spurs noted. Minimal degenerative changes of the 1st MTP joint. No other significant bone or joint abnormality. Soft tissues: Normal. IMPRESSION: No acute abnormality.
--- NOTE | 2024-03-24 | XR_ITS ---
PROCEDURE INFORMATION: Exam: XR Left Ankle Exam date and time: 03/24/2024 5:08 PM Age: 53 years old Clinical indication: Pain; Ankle; Left; Additional info: Tendinitis TECHNIQUE: Imaging protocol: Radiologic exam of the left ankle. Views: 3 or more views. COMPARISON: CR XR FOOT WT BEARING LT 3V 03/24/2024 5:08 PM FINDINGS: Bones/joints: Small to moderate size Achilles tendon insertion heel spur and small plantar fascial insertion heel spur. No other significant bone or joint abnormality. Soft tissues: See Bones/joints finding. IMPRESSION: No acute abnormality.
== END 2024-03-24 23:59 | disposition home or self-care (01) ==
LOC: RAD 16:59
PROVIDERS: PCP Physician Assistant; Visit Provider Physician Assistant
DX: M76.61 Achilles tendinitis, right leg (principal); M76.62 Achilles tendinitis, left leg
CPT/HCPCS: 73610; 73630

== ENCOUNTER 2024-05-13 09:07 | Outpatient (CLI) | payer BC, SELFPAY ==
[2024-05-13 10:12] LABS: Alanine Aminotransferase 79 U/L (12-78); Albumin Level 4.8 g/dl (3.5-5.0); Aspartate Amino Transferase 62 U/L (14-36); Bilirubin,Direct 0.2 mg/dl (0.0-0.4); Bilirubin,Indirect 0.4 mg/dL (0.0-0.9); Bilirubin,Total 0.6 mg/dl (0.2-1.3); Bilirubin,Unconjugated 0.4 mg/dL (0.0-1.1); Total Protein,Serum 7.9 g/dl (6.3-8.2); Triglycerides 146 mg/dl (30-150)
[2024-05-13 10:13] LABS: Alkaline Phosphatase 76 U/L (38-126); Cholesterol 152 mg/dl (140-200); HDL Cholesterol 38 mg/dl (40-60); VLDL Cholesterol 29 mg/dL (0-40)
[2024-05-13 10:24] LABS: Direct LDL Cholesterol 76.31 mg/dL (100-129)
== END 2024-05-13 23:59 | disposition home or self-care (01) ==
LOC: LAB 09:08
PROVIDERS: PCP Physician Assistant; Visit Provider Nurse Practitioner Family
DX: E78.49 Other hyperlipidemia (principal); Z82.49 Family history of ischemic heart disease and other diseases of the circulatory system
CPT/HCPCS: 36415; 80061; 80076